=== PATIENT | male | born 1955 | race Caucasian/White ===

== ENCOUNTER 2022-10-18 12:42 | Inpatient (IN) | payer OTHER, MEDICAID ==
[~2022-10-18] VITALS: Ht 167.6 cm; Wt 124.1 kg
[~2022-10-18 12:42] MED LIST: ASPI-556 PO; CARV12 PO; GABA-1181 PO; HYDR25TA2 PO; LISI-894 PO; QUET25TA PO; TAMS-13 PO; TIOT185 IH
[2022-10-18] MEDS ORDERED: FLUO20CA36 PO (13:57)
[2022-10-18] MEDS ORDERED: SEMA0.258 SQ (13:57)
[2022-10-18] MEDS ORDERED: QUET200T PO (13:57)
[2022-10-18] MEDS ORDERED: APIX5TAB PO (13:57)
[2022-10-18] MEDS ORDERED: NIFE-141 PO (13:57)
[2022-10-18] MEDS ORDERED: LISI-894 PO (13:57)
[2022-10-18] MEDS ORDERED: ATOR40TA28 PO (13:57)
[2022-10-18 14:14] LABS: BASOPHILS % (AUTO) 0.6 % (0.0-2.0); EOSINOPHILS % (AUTO) 1.5 % (1.0-6.0); HEMATOCRIT 39.5 % (41-53); HEMOGLOBIN 12.6 g/dL (13.5-17.5); LYMPHOCYTES # (AUTO) 1.4 K/uL (1.0-4.8); MEAN CORPUSCULAR HEMOGLOBIN 27.1 pg (26.0-34.0); MEAN CORPUSCULAR HGB CONC 31.9 G/dL (31.0-37.0); MEAN CORPUSCULAR VOLUME 85 fL (80-100); MONOCYTES # (AUTO) 0.5 K/uL (0.1-1.0); MONOCYTES % (AUTO) 5.5 % (2.0-9.0); NEUTROPHILS # (AUTO) 7.1 K/uL (1.8-7.7); NEUTROPHILS % (AUTO) 77.4 % (40.0-70.0); PLATELET COUNT (AUTO) 246 K/uL (150-450); RED BLOOD CELL COUNT(AUTO) 4.63 MIL/uL (4.50-5.90); RED CELL DISTRIBUTION WIDTH 19.1 % (11.5-14.5); WHITE BLOOD COUNT (AUTO) 9.1 K/uL (4.5-11.0)
[2022-10-18 14:28] LABS: ANION GAP 3 mmol/L (8-16); CALCIUM, TOTAL 8.5 mg/dL (8.8-10.5); CARBON DIOXIDE 36 mmol/L (22-29); CHLORIDE 99 mmol/L (98-107); CREATININE 0.97 mg/dL (0.60-1.30); GLOMERULAR FILTR. RATE CALC > 60 mL/min (>60); GLUCOSE,RANDOM 92 mg/dL (70-110); POTASSIUM 4.1 mmol/L (3.5-5.1); SODIUM SERUM 138 mmol/L (136-145); UREA NITROGEN, BLOOD 21 mg/dL (7-18)
[2022-10-18 14:30] LABS: ALANINE AMINOTRANSFERASE 10 U/L (12-78); ALBUMIN 3.4 g/dL (3.4-5.0); ALKALINE PHOSPHATASE 86 U/L (46-116); ASPARTATE AMINOTRANSFERASE 11 U/L (15-37); BILIRUBIN,TOTAL 0.6 mg/dL (0.1-1.0); TOTAL PROTEIN, SERUM 6.9 g/dL (6.4-8.2)
[2022-10-18 14:32] LABS: ALCOHOL, URINE DRUG SCREEN NEGATIVE (NEGATIVE); AMPHET/METH SCREEN,URINE NEGATIVE (NEGATIVE); BARBITURATE SCREEN, URINE NEGATIVE (NEGATIVE); BENZODIAZEPINES SCREEN,URINE NEGATIVE (NEGATIVE); CANNABINOID SCREEN,URINE NEGATIVE (NEGATIVE); COCAINE SCREEN,URINE NEGATIVE (NEGATIVE); METHADONE SCREEN, URINE NEGATIVE (NEGATIVE); OPIATE SCREEN,URINE NEGATIVE (NEGATIVE); PHENCYCLIDINE SCREEN,URINE NEGATIVE (NEGATIVE)
[2022-10-18 14:33] LABS: ALCOHOL, BLOOD (SERUM) < 3 mg/dL (0-10)
[2022-10-18] MEDS ORDERED: ZOLPIDEM TARTRATE 10 MG TABLET PO PRN (15:00)
[2022-10-18] MEDS ORDERED: LORazepam 2 MG TABLET PO PRN (15:00)
[2022-10-18] MEDS ORDERED: HALOPERIDOL 5 MG TABLET PO PRN (15:00)
[2022-10-18 15:48] LABS: COVID AG,FIA SOURCE NASAL SWAB
[2022-10-18 16:13] LABS: SARS-COV2 (COVID) ANTIGEN,FIA Negative (Negative)
[2022-10-19] MEDS ORDERED: QUEtiapine FUMARATE 100 MG TABLET PO ONE (00:45)
[2022-10-19] MEDS ORDERED: ALBUTEROL SULFATE 2.5 MG/0.5 ML NEB SOLUTION NEB ONE (17:00)
[2022-10-19] MEDS ORDERED: IPRATROPIUM BROMIDE 0.5 MG/2.5 ML NEB SOLUTION NEB ONE (17:00)
[2022-10-19 17:03] VITALS: PULSE 78; RESP 16; O2SAT 98
[2022-10-19 17:07] VITALS: PULSE 78; RESP 16; O2SAT 98
[2022-10-19] MEDS ORDERED: 0.9% SODIUM CHLORIDE 10 ML SYRINGE IVP PRN (17:45)
[2022-10-19] MEDS ORDERED: ONDANSETRON HCL 4 MG/2 ML VIAL IVP PRN (17:45)
[2022-10-19] MEDS ORDERED: INSULIN REGULAR, HUMAN 100 UNITS/ML SQ PRN (17:45)
[2022-10-19] MEDS ORDERED: DEXTROSE 50%-WATER 25 GM/50 ML SYRINGE IVP PRN (17:45)
[2022-10-19] MEDS: PANTOPRAZOLE SODIUM 40 MG/VIAL IVP SCH (18:08)
[2022-10-19] MEDS: OxyCODONE HCL/ACETAMINOPHEN 5-325 MG TABLET PO PRN (18:09)
[2022-10-19] MEDS: LISINOPRIL 20 MG TABLET PO SCH (18:11)
[2022-10-19] MEDS: NIFEdipine 30 MG ER TABLET PO SCH (18:11)
[2022-10-19] MEDS ORDERED: FLUoxetine HCL 20 MG CAPSULE PO ONE (18:15)
[2022-10-19 20:41] VITALS: BP 161/99; PULSE 83; RESP 20; TEMP 98
[2022-10-19] MEDS: DOCUSATE SODIUM 100 MG CAPSULE PO SCH (21:00)
[2022-10-19] MEDS: APIXABAN 5 MG TABLET PO SCH (21:25)
[2022-10-19] MEDS: ATORVASTATIN CALCIUM 40 MG TABLET PO SCH (21:25)
[2022-10-19] MEDS: CARVEDILOL 12.5 MG TABLET PO SCH (21:25)
[2022-10-19] MEDS: QUEtiapine FUMARATE 100 MG TABLET PO SCH (21:25)
[2022-10-19] MEDS: INSULIN GLARGINE,HUM.REC.ANLOG 100 UNITS/ML SQ SCH (21:45)
[2022-10-20 00:44] VITALS: BP 148/88; PULSE 90; RESP 20; TEMP 98.1
[2022-10-20 01:26] LABS: GLUCOMETER DEV NAME(LOC) 5N.1C; GLUCOSE,POINT OF CARE 165 MG/DL (70-110)
[2022-10-20 05:29] VITALS: BP 146/87; PULSE 91; RESP 22; TEMP 98.7
[2022-10-20 06:54] LABS: BASOPHILS % (AUTO) 0.3 % (0.0-2.0); EOSINOPHILS % (AUTO) 2.3 % (1.0-6.0); HEMATOCRIT 36.1 % (41-53); HEMOGLOBIN 11.5 g/dL (13.5-17.5); LYMPHOCYTES # (AUTO) 1.7 K/uL (1.0-4.8); LYMPHOCYTES % (AUTO) 21.1 % (22.0-44.0); MEAN CORPUSCULAR HEMOGLOBIN 27.3 pg (26.0-34.0); MEAN CORPUSCULAR HGB CONC 31.9 G/dL (31.0-37.0); MEAN CORPUSCULAR VOLUME 86 fL (80-100); MONOCYTES # (AUTO) 0.5 K/uL (0.1-1.0); MONOCYTES % (AUTO) 6.2 % (2.0-9.0); NEUTROPHILS # (AUTO) 5.6 K/uL (1.8-7.7); NEUTROPHILS % (AUTO) 70.1 % (40.0-70.0); PLATELET COUNT (AUTO) 236 K/uL (150-450); RED BLOOD CELL COUNT(AUTO) 4.22 MIL/uL (4.50-5.90); RED CELL DISTRIBUTION WIDTH 19.1 % (11.5-14.5); WHITE BLOOD COUNT (AUTO) 7.9 K/uL (4.5-11.0)
[2022-10-20 07:23] LABS: ANION GAP 5 mmol/L (8-16); CALCIUM, TOTAL 8.6 mg/dL (8.8-10.5); CARBON DIOXIDE 35 mmol/L (22-29); CHLORIDE 101 mmol/L (98-107); CREATININE 1.03 mg/dL (0.60-1.30); GLOMERULAR FILTR. RATE CALC > 60 mL/min (>60); GLUCOSE,RANDOM 102 mg/dL (70-110); POTASSIUM 4.3 mmol/L (3.5-5.1); SODIUM SERUM 141 mmol/L (136-145); UREA NITROGEN, BLOOD 23 mg/dL (7-18)
[2022-10-20 07:43] VITALS: BP 101/56; PULSE 81; RESP 20; TEMP 98.4
[2022-10-20] MEDS: CARVEDILOL 12.5 MG TABLET PO SCH ×2 (08:42→20:42)
[2022-10-20] MEDS: FLUoxetine HCL 20 MG CAPSULE PO SCH (08:44)
[2022-10-20] MEDS: PANTOPRAZOLE SODIUM 40 MG/VIAL IVP SCH (08:44)
[2022-10-20] MEDS: NIFEdipine 30 MG ER TABLET PO SCH (08:44)
[2022-10-20] MEDS: DOCUSATE SODIUM 100 MG CAPSULE PO SCH ×2 (08:45→20:47)
[2022-10-20] MEDS: APIXABAN 5 MG TABLET PO SCH ×2 (08:52→20:42)
[2022-10-20] MEDS: LISINOPRIL 20 MG TABLET PO SCH (09:00)
[2022-10-20] MEDS ORDERED: QUEtiapine FUMARATE 25 MG TABLET PO PRN (10:15)
[2022-10-20 11:46] LABS: GLUCOMETER DEV NAME(LOC) 5N.2C; GLUCOSE,POINT OF CARE 143 MG/DL (70-110)
[2022-10-20 11:46] LABS: GLUCOMETER DEV NAME(LOC) 5N.2C; GLUCOSE,POINT OF CARE 114 MG/DL (70-110)
[2022-10-20 11:48] VITALS: BP 110/66; PULSE 80; RESP 19; TEMP 98
[2022-10-20] MEDS: OxyCODONE HCL/ACETAMINOPHEN 5-325 MG TABLET PO PRN ×2 (17:07→20:42)
[2022-10-20 20:04] VITALS: BP 130/64; PULSE 85; RESP 21; TEMP 98.8
[2022-10-20] MEDS: ATORVASTATIN CALCIUM 40 MG TABLET PO SCH (20:42)
[2022-10-20] MEDS: QUEtiapine FUMARATE 100 MG TABLET PO SCH (20:43)
[2022-10-20] MEDS: INSULIN GLARGINE,HUM.REC.ANLOG 100 UNITS/ML SQ SCH (20:57)
[2022-10-20 23:31] LABS: GLUCOMETER DEV NAME(LOC) 5S.2C; GLUCOSE,POINT OF CARE 160 MG/DL (70-110)
[2022-10-21] VITALS (9 sets, daily range): BP systolic 98–133; BP diastolic 57–87; PULSE 75–97; RESP 18–22; TEMP 97.7–98.4; O2SAT 93
[2022-10-21] MEDS: PANTOPRAZOLE SODIUM 40 MG/VIAL IVP SCH (08:27)
[2022-10-21] MEDS: APIXABAN 5 MG TABLET PO SCH ×2 (08:27→20:05)
[2022-10-21] MEDS: CARVEDILOL 12.5 MG TABLET PO SCH ×2 (08:33→20:05)
[2022-10-21] MEDS: NIFEdipine 30 MG ER TABLET PO SCH (09:00)
[2022-10-21] MEDS: DOCUSATE SODIUM 100 MG CAPSULE PO SCH ×2 (09:00→20:05)
[2022-10-21] MEDS: OxyCODONE HCL/ACETAMINOPHEN 5-325 MG TABLET PO PRN ×3 (10:49→20:11)
[2022-10-21] MEDS: FLUoxetine HCL 20 MG CAPSULE PO SCH (10:49)
[2022-10-21] MEDS: LISINOPRIL 20 MG TABLET PO SCH (17:30)
[2022-10-21 17:41] LABS: GLUCOMETER DEV NAME(LOC) 5S.1B; GLUCOSE,POINT OF CARE 125 MG/DL (70-110)
[2022-10-21] MEDS: ATORVASTATIN CALCIUM 40 MG TABLET PO SCH (20:05)
[2022-10-21] MEDS: QUEtiapine FUMARATE 100 MG TABLET PO SCH (20:05)
[2022-10-21] MEDS: INSULIN GLARGINE,HUM.REC.ANLOG 100 UNITS/ML SQ SCH (20:08)
[2022-10-22 00:04] VITALS: BP 133/76; PULSE 87; RESP 22; TEMP 97.7
[2022-10-22 04:00] VITALS: BP 131/72; PULSE 76; RESP 20; TEMP 98
[2022-10-22] MEDS: PANTOPRAZOLE SODIUM 40 MG/VIAL IVP SCH (08:27)
[2022-10-22] MEDS: DOCUSATE SODIUM 100 MG CAPSULE PO SCH ×3 (08:27→20:05)
[2022-10-22] MEDS: CARVEDILOL 12.5 MG TABLET PO SCH ×2 (08:27→20:05)
[2022-10-22] MEDS: FLUoxetine HCL 20 MG CAPSULE PO SCH (08:28)
[2022-10-22] MEDS: APIXABAN 5 MG TABLET PO SCH ×2 (08:28→20:06)
[2022-10-22] MEDS: LISINOPRIL 20 MG TABLET PO SCH (08:28)
[2022-10-22] MEDS: NIFEdipine 30 MG ER TABLET PO SCH (08:28)
[2022-10-22 09:17] LABS: GLUCOMETER DEV NAME(LOC) 5N.1C; GLUCOSE,POINT OF CARE 119 MG/DL (70-110)
[2022-10-22 09:17] LABS: GLUCOMETER DEV NAME(LOC) 5N.1C; GLUCOSE,POINT OF CARE 145 MG/DL (70-110)
[2022-10-22 09:26] LABS: GLUCOMETER DEV NAME(LOC) 5N.2C; GLUCOSE,POINT OF CARE 93 MG/DL (70-110)
[2022-10-22 09:27] LABS: GLUCOMETER DEV NAME(LOC) 5N.2C; GLUCOSE,POINT OF CARE 114 MG/DL (70-110)
[2022-10-22 09:27] LABS: GLUCOMETER DEV NAME(LOC) 5N.2C; GLUCOSE,POINT OF CARE 113 MG/DL (70-110)
[2022-10-22 15:51] VITALS: BP 136/71; PULSE 81; RESP 22; TEMP 99.3
[2022-10-22] MEDS: OxyCODONE HCL/ACETAMINOPHEN 5-325 MG TABLET PO PRN (18:53)
[2022-10-22 20:00] VITALS: BP 146/63; PULSE 76; RESP 22; TEMP 98.1
[2022-10-22] MEDS: QUEtiapine FUMARATE 100 MG TABLET PO SCH (20:05)
[2022-10-22] MEDS: ATORVASTATIN CALCIUM 40 MG TABLET PO SCH (20:05)
[2022-10-22] MEDS: INSULIN GLARGINE,HUM.REC.ANLOG 100 UNITS/ML SQ SCH (20:07)
[2022-10-22 20:36] LABS: GLUCOMETER DEV NAME(LOC) 5N.1C; GLUCOSE,POINT OF CARE 98 MG/DL (70-110)
[2022-10-22 20:36] LABS: GLUCOMETER DEV NAME(LOC) 5N.1C; GLUCOSE,POINT OF CARE 117 MG/DL (70-110)
[2022-10-23] VITALS: BP 129/63; PULSE 78; RESP 22; TEMP 98.2
[2022-10-23 04:58] VITALS: BP 128/60; PULSE 70; RESP 18; TEMP 98.1
[2022-10-23 08:21] VITALS: BP 144/70; PULSE 81; RESP 20; TEMP 97.5
[2022-10-23] MEDS: APIXABAN 5 MG TABLET PO SCH ×2 (08:56→20:40)
[2022-10-23] MEDS: PANTOPRAZOLE SODIUM 40 MG/VIAL IVP SCH (08:57)
[2022-10-23] MEDS: LISINOPRIL 20 MG TABLET PO SCH (08:57)
[2022-10-23] MEDS: CARVEDILOL 12.5 MG TABLET PO SCH ×2 (08:57→20:40)
[2022-10-23] MEDS: FLUoxetine HCL 20 MG CAPSULE PO SCH (08:57)
[2022-10-23] MEDS: NIFEdipine 30 MG ER TABLET PO SCH (08:57)
[2022-10-23] MEDS: DOCUSATE SODIUM 100 MG CAPSULE PO SCH ×2 (08:58→20:40)
[2022-10-23] MEDS: OxyCODONE HCL/ACETAMINOPHEN 5-325 MG TABLET PO PRN ×3 (09:04→20:40)
[2022-10-23 12:11] VITALS: BP 133/70; PULSE 75; RESP 19; TEMP 98.1
[2022-10-23 15:49] VITALS: BP 121/79; PULSE 74; RESP 20; TEMP 98.1
[2022-10-23 19:39] VITALS: BP 155/82; PULSE 82; RESP 20; TEMP 98.5
[2022-10-23] MEDS: INSULIN GLARGINE,HUM.REC.ANLOG 100 UNITS/ML SQ SCH (20:38)
[2022-10-23] MEDS: QUEtiapine FUMARATE 100 MG TABLET PO SCH (20:39)
[2022-10-23] MEDS: ATORVASTATIN CALCIUM 40 MG TABLET PO SCH (20:40)
[2022-10-23] MEDS: MELATONIN 5 MG TABLET PO SCH (21:00)
[2022-10-23 23:36] LABS: GLUCOMETER DEV NAME(LOC) 5S.2C; GLUCOSE,POINT OF CARE 113 MG/DL (70-110)
[2022-10-23 23:36] LABS: GLUCOMETER DEV NAME(LOC) 5S.2C; GLUCOSE,POINT OF CARE 133 MG/DL (70-110)
[2022-10-24 00:22] VITALS: BP 124/58; PULSE 76; RESP 19; TEMP 97.8
[2022-10-24] MEDS: OxyCODONE HCL/ACETAMINOPHEN 5-325 MG TABLET PO PRN ×3 (02:05→17:55)
[2022-10-24 04:37] VITALS: BP 122/78; PULSE 73; RESP 20; TEMP 98.1
[2022-10-24 08:12] LABS: GLUCOMETER DEV NAME(LOC) 5S.1B; GLUCOSE,POINT OF CARE 96 MG/DL (70-110)
[2022-10-24 08:12] LABS: GLUCOMETER DEV NAME(LOC) 5S.1B; GLUCOSE,POINT OF CARE 113 MG/DL (70-110)
[2022-10-24 08:12] LABS: GLUCOMETER DEV NAME(LOC) 5S.1B; GLUCOSE,POINT OF CARE 141 MG/DL (70-110)
[2022-10-24] MEDS: PANTOPRAZOLE SODIUM 40 MG/VIAL IVP SCH (08:55)
[2022-10-24] MEDS: CARVEDILOL 12.5 MG TABLET PO SCH ×2 (08:56→20:09)
[2022-10-24] MEDS: NIFEdipine 30 MG ER TABLET PO SCH (08:57)
[2022-10-24] MEDS: LISINOPRIL 20 MG TABLET PO SCH (08:57)
[2022-10-24] MEDS: DOCUSATE SODIUM 100 MG CAPSULE PO SCH ×3 (08:57→20:09)
[2022-10-24] MEDS: APIXABAN 5 MG TABLET PO SCH ×2 (08:57→20:09)
[2022-10-24] MEDS: OMEGA-3/DHA/EPA/FISH OIL 1,000 MG CAPSULE PO SCH (08:58)
[2022-10-24] MEDS: FLUoxetine HCL 20 MG CAPSULE PO SCH (09:01)
[2022-10-24 11:22] VITALS: BP 113/42; PULSE 75; RESP 18; TEMP 98.3
[2022-10-24 16:00] VITALS: BP 120/65; PULSE 76; RESP 18; TEMP 97.7
[2022-10-24] MEDS ORDERED: INSULIN LISPRO 100 UNITS/ML SQ PRN (18:00)
[2022-10-24 18:16] LABS: GLUCOMETER DEV NAME(LOC) 5S.1B; GLUCOSE,POINT OF CARE 119 MG/DL (70-110)
[2022-10-24 20:00] VITALS: BP 147/65; PULSE 78; RESP 18; TEMP 98.3
[2022-10-24] MEDS: INSULIN GLARGINE,HUM.REC.ANLOG 100 UNITS/ML SQ SCH (20:08)
[2022-10-24] MEDS: ATORVASTATIN CALCIUM 40 MG TABLET PO SCH (20:09)
[2022-10-24] MEDS: QUEtiapine FUMARATE 100 MG TABLET PO SCH (20:09)
[2022-10-24] MEDS: MELATONIN 5 MG TABLET PO SCH (20:10)
[2022-10-25] VITALS: BP 151/79; PULSE 86; RESP 20; TEMP 97.8
[2022-10-25 02:30] LABS: GLUCOMETER DEV NAME(LOC) 5N.1C; GLUCOSE,POINT OF CARE 147 MG/DL (70-110)
[2022-10-25] MEDS: OxyCODONE HCL/ACETAMINOPHEN 5-325 MG TABLET PO PRN ×3 (03:16→13:46)
[2022-10-25 03:39] VITALS: BP 109/47; PULSE 74; RESP 18; TEMP 98.7
[2022-10-25 06:16] LABS: GLUCOMETER DEV NAME(LOC) 5S.2C; GLUCOSE,POINT OF CARE 121 MG/DL (70-110)
[2022-10-25 07:00] VITALS: BP 121/57; PULSE 76; RESP 18; TEMP 99
[2022-10-25 07:51] LABS: GLUCOMETER DEV NAME(LOC) 6S.2; GLUCOSE,POINT OF CARE 103 MG/DL (70-110)
[2022-10-25] MEDS: DOCUSATE SODIUM 100 MG CAPSULE PO SCH ×2 (09:00→09:04)
[2022-10-25] MEDS: FLUoxetine HCL 20 MG CAPSULE PO SCH (09:05)
[2022-10-25] MEDS: OMEGA-3/DHA/EPA/FISH OIL 1,000 MG CAPSULE PO SCH (09:05)
[2022-10-25] MEDS: LISINOPRIL 20 MG TABLET PO SCH (09:06)
[2022-10-25] MEDS: CARVEDILOL 12.5 MG TABLET PO SCH (09:06)
[2022-10-25] MEDS: PANTOPRAZOLE SODIUM 40 MG/VIAL IVP SCH (09:10)
[2022-10-25 09:45] VITALS: BP 144/72; PULSE 72; RESP 20; TEMP 98.6
[2022-10-25] MEDS ORDERED: FLUO20CA36 PO (09:56)
[2022-10-25] MEDS ORDERED: OMEG-135 PO (09:56)
[2022-10-25] MEDS ORDERED: MELA5TAB40 PO (09:56)
[2022-10-25] MEDS ORDERED: QUET100T34 PO (09:56)
[2022-10-25 11:46] LABS: GLUCOMETER DEV NAME(LOC) 6S.2; GLUCOSE,POINT OF CARE 133 MG/DL (70-110)
[2022-10-25] MEDS: APIXABAN 5 MG TABLET PO SCH (12:15)
[2022-10-25] MEDS: NIFEdipine 30 MG ER TABLET PO SCH (12:15)
== END 2022-10-25 15:40 | disposition home health service (06) | DRG 881 ==
LOC: EMS 12:43 → 5S 10-19 19:30 → 6S 10-24 23:41
PROVIDERS: ADMIT Internal Medicine; ATTEND Internal Medicine
DX: F32.9 Major depressive disorder, single episode, unspecified (principal); J96.11 Chronic respiratory failure with hypoxia; R45.851 Suicidal ideations; Z68.42 Body mass index [BMI] 45.0-49.9, adult; J44.9 Chronic obstructive pulmonary disease, unspecified; E26.9 Hyperaldosteronism, unspecified; E78.00 Pure hypercholesterolemia, unspecified; F41.9 Anxiety disorder, unspecified; I10 Essential (primary) hypertension; F25.9 Schizoaffective disorder, unspecified; E66.01 Morbid (severe) obesity due to excess calories; Z20.822 Contact with and (suspected) exposure to COVID-19; F15.90 Other stimulant use, unspecified, uncomplicated; E11.9 Type 2 diabetes mellitus without complications; G47.33 Obstructive sleep apnea (adult) (pediatric); I48.0 Paroxysmal atrial fibrillation; Z99.81 Dependence on supplemental oxygen; Z99.3 Dependence on wheelchair; Z79.01 Long term (current) use of anticoagulants; Z79.899 Other long term (current) drug therapy; Z79.82 Long term (current) use of aspirin
CPT/HCPCS: 70450; 80048; 80053; 80307; 82962; 85025; 94640; 97116; 97167; 97530; 97535; 99285; C9113; G0480; J1815